=== PATIENT | male | born 1960 | race Caucasian/White ===

== ENCOUNTER 2016-09-01 13:05 | Inpatient (IN) | payer MEDICAID ==
[2016-09-01 13:14] VITALS: BMI 29.7
[2016-09-01] MEDS ORDERED: DUONEB 0.5 MG/3 MG ONE (13:33)
--- NOTE | 2016-09-01 13:33 | DR.GENAD ---
HPI - PCP Primary Care Physician: BRANDY - HPI Comment HPI Comment: INCREASING WEAKNESS AND SOB TIMES ONE DAY. FEEL BP MAY BE HIGH BUT IS LOW IN ED. COPD PATIENT BUT HOME MEDS NOT HELPING. - Complaint/Symptoms Chief Complaint Doctors Comments: SOB, WEAK, LOW BP Chief Complaint:: HARD TIME BREATHING, CONGESTED DRY COUGH, FEELS LIKE BP IS UP Self Treatment fo Chief Complaint: TOOKE REGULAR MEDS - Nurses notes reviewed Nurses Notes Review: Yes - Source History Provided: Patient - Mode of Arrival Mode of Arrival: Ambulatory - Timing Onset of Chief Complaint: 08/31/16 Came on: Suddenly - Duration Duration: Constant Duration: Days - Severity Severity: Moderate PMH - PMH Past Medical History: Yes Past Medical History: CHF, COPD, Hypertension, Schizophrenia Past Surgical History: Yes Surgical History: Ortho Surgery, Other - Family History History of Family Medical Conditions: Yes Family Medical History: Diabetes Mellitus, ID, Coronary Artery Disease, Hypertension - Social History Alcohol Use: None Do you use any recreational Drugs:: No Lives With: Family Lives Where: Home - infectious screening In the last 2 months have you had wt loss of >10#?: NO Have you had fever, night sweats or hemotysis?: No Have you traveled outside the country in the last 6 months?: No Isolation: Standard ROS - Review of Systems Constitutional: No Symptoms Reported, Weakness, Fatigue. negative: Chills, Fever Eyes: No Symptoms Reported. negative: Eye Pain, Discharge ENTM: Nose Congestion. negative: Ear Pain, Nose Discharge, Throat Pain Respiratoy: Non-Productive Cough, Short of Breath, Wheezing. negative: Hemoptysis Cardiovascular: Chest Pain, Palpitations Gastrointestinal/Abdominal: No Symptoms Reported. negative: Constipation, Diarrhea, Nausea, Vomiting Genitourinary: No Symptoms Reported Neurological: Weakness, Dizziness. negative: Headache Musculoskeletal: Muscle Pain Integumentary: No Symptoms Reported, Change in Color Hematologic/Lymphatic: negative: Easy Bruising Endocrine: No Symptoms Reported All Other Systems: Reviewed and Negative PE - Vital Signs Vitals: Temperature 98.5 F Pulse Rate [Right Brachial] 92 Pulse Rate [Right Dorsalis 83 Pedis] Pulse Rate 102 Respiratory Rate 17 Blood Pressure [Right Arm] 87/53 Blood Pressure [Left Arm] 81/48 Blood Pressure 70/49 O2 Sat by Pulse Oximetry 92 - General Limitations: No Limitations General Appearance: Alert - Head Head Exam: Normal Inspection - Eyes Eye exam: Normal Appearance - ENT ENT Exam: Normal External Ear Exam External Ear Exam: Normal External Inspection TM/Canal Exam: Bilateral Normal Nose Exam: Normal Nose Exam Mouth Exam: Normal Inspection Throat Exam: Normal Inspection - Neck Neck Exam: Trachea Midline. negative: Tenderness, Meningismus, Lymphadenopathy - Chest Chest Inspection: Symmetric Chest Wall Rise - Respiratory Respiratory Exam: Respiratory Distress Respiratory Exam: Bilateral Wheezing, Bilateral Rhonchi, Upper Wheezing, Upper Rhonchi, Lower Wheezing, Lower Rhonchi - Cardiovascular Cardiovascular Exam: Regular Rate, Normal Rhythm, Tachycardia - Abdominal Exam Abdominal Exam: Normal Bowel Sounds, Soft. negative: Tenderness - Extremities Extremities Exam: Normal Inspection - Back Back Exam: Normal Inspection - Neurologic Neurological Exam: Alert, Oriented X3 - Psychiatric Psychiatric Exam: Normal Affect, Normal Mood - Skin Skin Exam: Normal Color MDM - Differential Diagnosis Differential Diagnosis: CODP EXACERBATION, HYPOTENSION, DEHYDRATION, PNEUMONIA Course - Treatment Treatment: SEE ORDERS - Consultation Consultation Comments: DISCUSS PATIENT WITH DR. NAVA. HE WILL ADMIT PATIENT. - Education/Counseling Education/Counseling: Patient, Education Educated On: Treatment, Diagnosis ROR - Labs Reviewed Laboratory Results Reviewed?: Yes Result Diagrams: 09/01/16 13:26 09/01/16 13:26 Laboratory: WBC 11.4 X10^3/uL (3.6-10.0) H 09/01/16 13:26 RBC 3.97 X10^6/uL (4.7-6.0) L 09/01/16 13:26 Hgb 11.8 g/dL (13.5-18.0) L 09/01/16 13:26 Hct 35.8 % (42.0-54.0) L 09/01/16 13:26 MCV 90.2 fL (80.0-100.0) 09/01/16 13:26 MCH 29.7 pg (27.0-34.0) 09/01/16 13:26 MCHC 32.9 g/dL (33.0-35.0) L 09/01/16 13:26 RDW 13.4 % (11.6-16.5) 09/01/16 13:26 Plt Count 369 X10^3/uL (150.0-450.0) 09/01/16 13:26 MPV 7.5 fL (7.4-11.0) 09/01/16 13: Neut % 84.3 % (42.0-75.0) H 09/01/16 13: Lymph % 5.4 % (21.0-51.0) L 09/01/16 13:26 Briscoe % 9.5 % (0.0-13.0) 09/01/16 13: Eos % 0.4 % (0.9-2.9) L 09/01/16 13: Baso % 0.4 % (0.2-1.0) 09/01/16 13: Neut # 9.7 x10^3/uL (2.2-4.8) H 09/01/16 13: Lymph # 0.6 X10^3/uL (1.3-2.9) L 09/01/16 13: Briscoe # 1.1 x10^3/uL (0.3-0.8) H 09/01/16 13: Eos # 0.0 x10^3/uL (0.0-0.2) 09/01/16 13: Baso # 0.0 X10^3/uL (0.0-0.1) 09/01/16 13:26 Absolute Nucleated RBC 0.0 /100WBC 09/01/16 13:26 Sodium 137 mmol/L (136-145) 09/01/16 13:26 Corrected Sodium TNP 09/01/16 13:26 Potassium 5.3 mmol/L (3.5-5.1) H 09/01/16 13:26 Chloride 99 mmol/L (98-107) 09/01/16 13:26 Carbon Dioxide 25.8 mmol/L (21-32) 09/01/16 13:26 BUN 117 mg/dL (7-18) H 09/01/16 13:26 Creatinine 4.31 mg/dL (0.70-1.30) H 09/01/16 13:26 Est GFR (MDRD) Af Amer 19 (>60) L 09/01/16 13:26 Est GFR (MDRD) Non-Af 15 (>60) L 09/01/16 13:26 Glucose 96 mg/dL (65-99) 09/01/16 13:26 Calcium 8.4 mg/dL (8.5-10.1) L 09/01/16 13:26 Corrected Calcium TNP 09/01/16 13:26 Total Bilirubin 0.50 mg/dL (0.2-1.0) 09/01/16 13:26 AST 320 Units/L (15-37) H 09/01/16 13:26 ALT 144 Units/L (12-78) H 09/01/16 13:26 Alkaline Phosphatase 69 Units/L (46-116) 09/01/16 13:26 Creatine Kinase 2573 Units/L (39-308) H 09/01/16 13:26 CK-MB (CK-2) 112.9 ng/mL (0-4.0) H* 09/01/16 13:26 CK/CKMB % Calc 10.0 % (<4) 09/01/16 13:26 Troponin I < 0.02 ng/mL (0-1.5) 09/01/16 13:26 B-Natriuretic Peptide 160 pg/mL (0-79) H 09/01/16 13:26 Total Protein 7.8 g/dL (6.4-8.2) 09/01/16 13:26 Albumin 3.7 g/dL (3.4-5.0) 09/01/16 13:26 Globulin 4.1 g/dL (2.5-4.5) 09/01/16 13:26 Albumin/Globulin Ratio 0.9 Ratio (1.1-2.1) L 09/01/16 13:26 - XRAY XRAY Interpreted by: Radiologist XRAY Findings: REPORT DISCUSS WITH PATIENT. - EKG Rhythm: NSR (EKG NOTED) - Diagnosis Discharge Problem: COPD exacerbation, Renal insufficiency, Dehydration Hypotension Qualifiers: Hypotension type: unspecified hypotension type Qualified Code(s): I95.9 - Hypotension, unspecified - Discharge Plan Disposition: ADMITTED INPATIENT Condition: Stable - Follow ups/Referrals - Instructions
[2016-09-01] MEDS ORDERED: DUONEB 0.5 MG/3 MG NEB ONE (13:37)
[2016-09-01 13:41] LABS: BASOPHILS % (AUTO) 0.4 % (0.2-1.0); EOSINOPHILS % (AUTO) 0.4 % (0.9-2.9); HEMATOCRIT 35.8 % (42.0-54.0); HEMOGLOBIN 11.8 g/dL (13.5-18.0); LYMPHOCYTES # (AUTO) 0.6 X10^3/uL (1.3-2.9); LYMPHOCYTES % (AUTO) 5.4 % (21.0-51.0); MEAN CORPUSCULAR HEMOGLOBIN 29.7 pg (27.0-34.0); MEAN CORPUSCULAR HGB CONC 32.9 g/dL (33.0-35.0); MEAN CORPUSCULAR VOLUME 90.2 fL (80.0-100.0); MEAN PLATELET VOLUME 7.5 fL (7.4-11.0); MONOCYTES # (AUTO) 1.1 x10^3/uL (0.3-0.8); MONOCYTES % (AUTO) 9.5 % (0.0-13.0); NEUTROPHILS # (AUTO) 9.7 x10^3/uL (2.2-4.8); NEUTROPHILS % (AUTO) 84.3 % (42.0-75.0); PLATELET COUNT 369 X10^3/uL (150.0-450.0); RED BLOOD COUNT 3.97 X10^6/uL (4.7-6.0); RED CELL DISTRIBUTION WIDTH 13.4 % (11.6-16.5); WHITE BLOOD COUNT 11.4 X10^3/uL (3.6-10.0)
--- NOTE | 2016-09-01 13:52 | RAD ---
Examination: Chest x-ray. Clinical history: Chest pain. Shortness of breath. Technique: A single portable AP view of the chest was obtained. Comparison: 06/27/2016. Findings: The cardiac and mediastinal contours are within normal limits. The thoracic aorta is calcified. No pneumothorax or pleural effusion is noted. The lungs are clear. No acute osseous abnormality is noted. Impression: 1. No acute disease. Reported By:
[2016-09-01 13:57] LABS: BLOOD UREA NITROGEN 117 mg/dL (7-18); CALCIUM 8.4 mg/dL (8.5-10.1); CARBON DIOXIDE 25.8 mmol/L (21-32); CHLORIDE 99 mmol/L (98-107); CREATININE 4.31 mg/dL (0.70-1.30); GLUCOSE 96 mg/dL (65-99); SODIUM 137 mmol/L (136-145); TROPONIN I < 0.02 ng/mL (0-1.5); eGFR BLACK RACES 19 (>60); eGFR NON BLACK RACES 15 (>60)
[2016-09-01 14:00] LABS: B-TYPE NATRIURETIC PEPTIDE 160 pg/mL (0-79)
[2016-09-01 14:17] LABS: ALANINE AMINOTRANSFERASE 144 Units/L (12-78); ALBUMIN 3.7 g/dL (3.4-5.0); ALKALINE PHOSPHATASE 69 Units/L (46-116); ASPARTATE AMINO TRANSFERASE 320 Units/L (15-37); TOTAL PROTEIN 7.8 g/dL (6.4-8.2)
[2016-09-01 14:19] LABS: CREATINE KINASE MB 112.9 ng/mL (0-4.0)
[2016-09-01 14:38] LABS: CREATINE KINASE 2573 Units/L (39-308)
[2016-09-01] MEDS ORDERED: NS 1000 ML 1,000 ML IV ONE ×2 (14:49)
[2016-09-01] MEDS ORDERED: NS 1000 ML 1,000 ML ONE (14:49)
[2016-09-01] MEDS: DUONEB 0.5 MG/3 MG NEB SCH ×2 (16:40→20:30)
[2016-09-01] MEDS: NS 1000 ML 1,000 ML IV SCH ×2 (16:45→21:26)
[2016-09-01] MEDS: ROCEPHIN VIAL 1 GM 1 GM in NS 50 ML IV + SPIKE MINIBAG* 50 ML IV SCH (17:38)
[2016-09-01 20:51] LABS: TROPONIN I < 0.02 ng/mL (0-1.5)
[2016-09-01 21:26] LABS: CREATINE KINASE MB 75.1 ng/mL (0-4.0)
[2016-09-01 21:51] LABS: CKMB % 0.9 % (<4); CREATINE KINASE 8722 Units/L (39-308)
[2016-09-01 23:31] LABS: BILIRUBIN,URINE NEGATIVE (NEGATIVE); BLOOD/HEMOGLOBIN,URINE 3+ (NEGATIVE); GLUCOSE, URINE NEGATIVE (NEGATIVE); KETONES,URINE NEGATIVE (NEGATIVE); LEUKOCYTE ESTERASE ,URINE NEGATIVE (NEGATIVE); NITRITES,URINE NEGATIVE (NEGATIVE); PROTEIN,URINE 2+ (NEGATIVE); UROBILINOGEN,URINE NORMAL (NORMAL)
[2016-09-01 23:37] LABS: APPEARANCE,URINE CLEAR (CLEAR); COLOR,URINE YELLOW (YELLOW)
[2016-09-01 23:38] LABS: BACTERIA,URINE NEGATIVE /HPF (NEGATIVE); RBC,URINE 0-2 /HPF (NEGATIVE); SQUAMOUS EPITHELIAL CELL,UR RARE /HPF (NEGATIVE)
[2016-09-01] MEDS: RESTORIL CAP 15 MG PO PRN (23:39)
[2016-09-02] MEDS: DUONEB 0.5 MG/3 MG NEB SCH ×6 (00:37→21:28)
[2016-09-02] MEDS: NS 1000 ML 1,000 ML IV SCH ×4 (02:09→20:45)
[2016-09-02 02:30] LABS: TROPONIN I < 0.02 ng/mL (0-1.5)
[2016-09-02 02:33] LABS: CREATINE KINASE MB 51.8 ng/mL (0-4.0)
[2016-09-02 02:34] LABS: CKMB % 0.8 % (<4); CREATINE KINASE 6799 Units/L (39-308)
[2016-09-02 06:16] LABS: BASOPHILS % (AUTO) 0.4 % (0.2-1.0); EOSINOPHILS # (AUTO) 0.1 x10^3/uL (0.0-0.2); EOSINOPHILS % (AUTO) 1.7 % (0.9-2.9); HEMATOCRIT 30.2 % (42.0-54.0); HEMOGLOBIN 10.2 g/dL (13.5-18.0); LYMPHOCYTES # (AUTO) 0.9 X10^3/uL (1.3-2.9); LYMPHOCYTES % (AUTO) 13.3 % (21.0-51.0); MEAN CORPUSCULAR HEMOGLOBIN 30.8 pg (27.0-34.0); MEAN CORPUSCULAR HGB CONC 33.7 g/dL (33.0-35.0); MEAN CORPUSCULAR VOLUME 91.5 fL (80.0-100.0); MEAN PLATELET VOLUME 7.4 fL (7.4-11.0); MONOCYTES % (AUTO) 13.8 % (0.0-13.0); NEUTROPHILS % (AUTO) 70.8 % (42.0-75.0); PLATELET COUNT 302 X10^3/uL (150.0-450.0); RED BLOOD COUNT 3.31 X10^6/uL (4.7-6.0); RED CELL DISTRIBUTION WIDTH 13.6 % (11.6-16.5); WHITE BLOOD COUNT 7.1 X10^3/uL (3.6-10.0)
[2016-09-02 06:21] LABS: ALANINE AMINOTRANSFERASE 119 Units/L (12-78); ALBUMIN 2.9 g/dL (3.4-5.0); ALKALINE PHOSPHATASE 54 Units/L (46-116); ASPARTATE AMINO TRANSFERASE 216 Units/L (15-37); BLOOD UREA NITROGEN 95 mg/dL (7-18); CALCIUM 7.7 mg/dL (8.5-10.1); CARBON DIOXIDE 24.8 mmol/L (21-32); CHLORIDE 109 mmol/L (98-107); COR CA(FOR HYPOALB) 8.6 mg/dL (8.5-10.1); CREATININE 2.23 mg/dL (0.70-1.30); GLUCOSE 93 mg/dL (65-99); SODIUM 142 mmol/L (136-145); TOTAL PROTEIN 6.4 g/dL (6.4-8.2); eGFR BLACK RACES 40 (>60); eGFR NON BLACK RACES 33 (>60)
[2016-09-02] MEDS: ROCEPHIN VIAL 1 GM 1 GM in NS 50 ML IV + SPIKE MINIBAG* 50 ML IV SCH (09:00)
--- NOTE | 2016-09-02 17:04 | US ---
HISTORY: Elevated LFTs Study: Ultrasound of the liver Comparison: None Technique: Multiple clark scale and color flow Doppler images of the right upper quadrant were obtain ed. Findings: The liver is normal in echotexture and size. No focal intraparenchymal mass or intrahepatic biliary ductal dilatation can be observed. Multiple echogenic shadowing gallstones are seen. The common b ile duct measures 8 mm, slightly enlarged. No pericholecystic fluid or gallbladder wall thickening is observed. There was a positive Robison's sign reported. The right kidney appears normal in size without focal parenchymal mass or nephrolithiasis. The righ t kidney measurers 10.4 x 6.2 x 5.7 cm. No hydronephrosis or perirenal fluid can be observed. The pancreas was not visualized. IMPRESSION: 1. Cholelithiasis with reported positive sonographic Robison sign. The findings can be seen with acu te cholecystitis. Consider correlation with nuclear medicine hepatobiliary scan if indicated. Reported By:
[2016-09-02] MEDS ORDERED: NORCO 5/325 MG TAB PO PRN (19:45)
[2016-09-02] MEDS: RESTORIL CAP 15 MG PO PRN (20:45)
[2016-09-02] MEDS: ULTRAM PO PRN (22:38)
[2016-09-03] MEDS: DUONEB 0.5 MG/3 MG NEB SCH ×4 (01:03→12:16)
[2016-09-03] MEDS: NS 1000 ML 1,000 ML IV SCH (04:13)
[2016-09-03] MEDS: ULTRAM PO PRN (05:45)
[2016-09-03 06:15] LABS: BASOPHILS % (AUTO) 0.7 % (0.2-1.0); EOSINOPHILS # (AUTO) 0.1 x10^3/uL (0.0-0.2); EOSINOPHILS % (AUTO) 2.7 % (0.9-2.9); HEMATOCRIT 30.4 % (42.0-54.0); HEMOGLOBIN 10.1 g/dL (13.5-18.0); LYMPHOCYTES # (AUTO) 1.2 X10^3/uL (1.3-2.9); LYMPHOCYTES % (AUTO) 21.5 % (21.0-51.0); MEAN CORPUSCULAR HEMOGLOBIN 30.5 pg (27.0-34.0); MEAN CORPUSCULAR HGB CONC 33.2 g/dL (33.0-35.0); MEAN CORPUSCULAR VOLUME 91.6 fL (80.0-100.0); MEAN PLATELET VOLUME 7.4 fL (7.4-11.0); MONOCYTES # (AUTO) 0.7 x10^3/uL (0.3-0.8); MONOCYTES % (AUTO) 12.8 % (0.0-13.0); NEUTROPHILS # (AUTO) 3.4 x10^3/uL (2.2-4.8); NEUTROPHILS % (AUTO) 62.3 % (42.0-75.0); PLATELET COUNT 322 X10^3/uL (150.0-450.0); RED BLOOD COUNT 3.32 X10^6/uL (4.7-6.0); RED CELL DISTRIBUTION WIDTH 13.7 % (11.6-16.5); WHITE BLOOD COUNT 5.5 X10^3/uL (3.6-10.0)
[2016-09-03 07:12] LABS: ALANINE AMINOTRANSFERASE 107 Units/L (12-78); ALBUMIN 2.8 g/dL (3.4-5.0); ALKALINE PHOSPHATASE 51 Units/L (46-116); ASPARTATE AMINO TRANSFERASE 132 Units/L (15-37); BLOOD UREA NITROGEN 40 mg/dL (7-18); CALCIUM 7.7 mg/dL (8.5-10.1); CARBON DIOXIDE 25.9 mmol/L (21-32); COR CA(FOR HYPOALB) 8.7 mg/dL (8.5-10.1); CREATININE 1.09 mg/dL (0.70-1.30); GLUCOSE 89 mg/dL (65-99); SODIUM 148 mmol/L (136-145); TOTAL PROTEIN 5.5 g/dL (6.4-8.2); eGFR BLACK RACES > 60 (>60); eGFR NON BLACK RACES > 60 (>60)
[2016-09-03 07:16] LABS: CHLORIDE 116 mmol/L (98-107)
--- NOTE | 2016-09-03 08:34 | RAD ---
HISTORY: COPD with exacerbation Study: Two view chest Comparison: 09/01/2016 Findings: Lungs appear hyperinflated and hyperlucent suggesting underlying emphysematous changes with chronic coarsened interstitial markings. The lungs are clear without consolidation, effusion or pneumothorax . The cardiac and mediastinal contours are within normal limits. The soft tissues are unremarkable. IMPRESSION: 1. Chronic emphysematous changes without acute abnormality. Reported By:
[2016-09-03 09:33] VITALS: BP 126/70
[2016-09-03] MEDS: ROCEPHIN VIAL 1 GM 1 GM in NS 50 ML IV + SPIKE MINIBAG* 50 ML IV SCH (09:33)
== END 2016-09-03 12:30 | disposition home or self-care (01) | DRG 315 ==
LOC: ER 13:05 → OBS 15:35 → MED/SURG 09-02 18:50
PROVIDERS: ADMIT Obstetrics & Gynecology Obstetrics; ATTEND Obstetrics & Gynecology Obstetrics
DX: I95.89 Other hypotension (principal); J44.1 Chronic obstructive pulmonary disease with (acute) exacerbation; N28.89 Other specified disorders of kidney and ureter; E86.0 Dehydration; R06.02 Shortness of breath; R53.1 Weakness; I10 Essential (primary) hypertension; R74.8 Abnormal levels of other serum enzymes; M62.82 Rhabdomyolysis
CPT/HCPCS: 36415; 71010; 71020; 76705; 80053; 80307; 81001; 82550; 82553; 83880; 84484; 85025; 93005; 93010; 94640; 94760; 96365; 99284; A4222; G0434; G6039; J0696; J7620

== ENCOUNTER 2016-11-02 12:07 | Emergency (ER) | payer MEDICAID ==
[2016-11-02] MEDS ORDERED: ZOFRAN INJ 4 MG VIAL ONE (12:14)
[2016-11-02] MEDS ORDERED: NS 1000 ML 1,000 ML ONE ×3 (12:14→17:39)
[2016-11-02] MEDS ORDERED: ZOFRAN INJ 4 MG VIAL IVP ONE (12:18)
[2016-11-02] MEDS ORDERED: DEMEROL INJ IVP ONE (12:18)
--- NOTE | 2016-11-02 12:18 | DR.GENAD ---
HPI - Complaint/Symptoms Chief Complaint Doctors Comments: complaint of abdominal pain, no BM x 3-4 days , on lorcet - Nurses notes reviewed Nurses Notes Review: Yes - Source History Provided: Patient - Mode of Arrival Mode of Arrival: EMS - Timing Came on: Gradually - Duration Duration: Constant How lon Duration: Days - Location Location: abdomin - Severity Severity: Moderate - Modifying Factors Worsens:: narcotics - Associated Signs and Symptoms Associated Signs and Symptoms: nausea PMH - PMH Past Medical History: CHF, COPD, Hypertension, Schizophrenia Past Surgical History: No Surgical History: Ortho Surgery, Other - Family History Family Medical History: Hypertension - Social History Do you use any recreational Drugs:: No ROS - Review of Systems Constitutional: No Symptoms Reported Eyes: No Symptoms Reported ENTM: No Symptoms Reported Respiratoy: No Symptoms Reported Cardiovascular: No Symptoms Reported Gastrointestinal/Abdominal: Abdominal Pain, Nausea Genitourinary: No Symptoms Reported Neurological: No Symptoms Reported Musculoskeletal: No Symptoms Reported Integumentary: No Symptoms Reported Hematologic/Lymphatic: No Symptoms Reported Endocrine: No Symptoms Reported Psychiatric: Other (schizophrenic) PE - Vital Signs Vitals: Temperature 98.7 F Pulse Rate [Apical] 107 Pulse Rate [Left Radial] 75 Pulse Rate 98 Respiratory Rate 18 Blood Pressure [Right Arm] 97/58 Blood Pressure [Left Arm] 81/35 Blood Pressure 193/71 O2 Sat by Pulse Oximetry 100 Course - Treatment Treatment: 1610: patient oxygen sats 70-80 on oxygen, respiratory failure present, called nurse research development director and was intubated, pulse weak given bicarb and epi x 1. [facility] called. They were on diversion and called [facility] and accepted by ASIF Chaudhry for DR. Ramirez. Bp dropped again so dopamine started and maxed to 20 mcg. It was replaced with lephofed at 12mcg and Bp improved to 80s systolic. - Consultation Called: 13:25 Call Returned: 13:25 Consultation Comments: case discussed with DR. Nava admit for acute bronchitis and order ultrasound of liver. ROR - Labs Reviewed Result Diagrams: 11/02/16 12:27 11/02/16 17:50 Laboratory: WBC 13.4 X10^3/uL (3.6-10.0) H 11/02/16 12:27 RBC 3.91 X10^6/uL (4.7-6.0) L 11/02/16 12:27 Hgb 11.6 g/dL (13.5-18.0) L 11/02/16 12: Hct 35.1 % (42.0-54.0) L 11/02/16 12: MCV 89.9 fL (80.0-100.0) 11/02/16 12: MCH 29.7 pg (27.0-34.0) 11/02/16 12: MCHC 33.1 g/dL (33.0-35.0) 11/02/16 12: RDW 14.0 % (11.6-16.5) 11/02/16 12: Plt Count 298 X10^3/uL (150.0-450.0) 11/02/16 12: Plt Count Comment Adequate (ADEQUATE) 11/02/16 12: MPV 7.4 fL (7.4-11.0) 11/02/16 12: Neut % 91.3 % (42.0-75.0) H 11/02/16 12: Lymph % 2.7 % (21.0-51.0) L 11/02/16 12: Knott % 5.2 % (0.0-13.0) 11/02/16 12: Eos % 0.0 % (0.9-2.9) L 11/02/16 12: Baso % 0.8 % (0.2-1.0) 11/02/16 12: Neut # 12.3 x10^3/uL (2.2-4.8) H 11/02/16 12: Lymph # 0.4 X10^3/uL (1.3-2.9) L 11/02/16 12: Knott # 0.7 x10^3/uL (0.3-0.8) 11/02/16 12: Eos # 0.0 x10^3/uL (0.0-0.2) 11/02/16 12: Baso # 0.1 X10^3/uL (0.0-0.1) 11/02/16 12: Absolute Nucleated RBC 0.0 /100WBC 11/02/16 12: Total Counted 100 11/02/16 12:27 Neutrophils % (Manual) 68 % (39-76) 11/02/16 12:27 Band Neutrophils % 20 % (0-10) H 11/02/16 12:27 Lymphocytes % (Manual) 8 % (13-43) L 11/02/16 12:27 Monocytes % (Manual) 4 % (4-9) 11/02/16 12:27 Plt Morphology Comment Normal (NORMAL) 11/02/16 12:27 RBC Morphology Normal (NORMAL) 11/02/16 12:27 Sample Site Left femoral 11/02/16 17:55 ABG pH 7.110 (7.35-7.45) L* 11/02/16 17:55 ABG pCO2 67.0 mmHg (35.0-45.0) H* 11/02/16 17:55 ABG pO2 201.0 mmHg (80.0-100.0) H 11/02/16 17:55 ABG HCO3 21.3 mmol/L (22-26) L 11/02/16 17:55 ABG O2 Saturation 99.0 % (90-100) 11/02/16 17:55 ABG Base Excess -9.0 mmol/L (-2.0-2.0) L 11/02/16 17:55 Nitesh Test Na 11/02/16 17:55 A-a Gradient 72.0 mmHg 11/02/16 17:55 FiO2 50.000 11/02/16 17:55 Blood Gas Comments Marcellus well aw 11/02/16 17:55 Sodium 140 mmol/L (136-145) 11/02/16 13:45 Corrected Sodium TNP 11/02/16 13:45 Potassium 8.1 mmol/L (3.5-5.1) H* 11/02/16 17:50 Chloride 97 mmol/L (98-107) L 11/02/16 13:45 Carbon Dioxide 22.7 mmol/L (21-32) 11/02/16 13:45 BUN 103 mg/dL (7-18) H 11/02/16 13:45 Creatinine 10.13 mg/dL (0.70-1.30) H 11/02/16 13:45 Est GFR (MDRD) Af Amer 7 (>60) L 11/02/16 13:45 Est GFR (MDRD) Non-Af 6 (>60) L 11/02/16 13:45 Glucose 91 mg/dL (65-99) 11/02/16 13:45 Calcium 8.0 mg/dL (8.5-10.1) L 11/02/16 13:45 Corrected Calcium 8.6 mg/dL (8.5-10.1) 11/02/16 13:45 Total Bilirubin 2.90 mg/dL (0.2-1.0) H 11/02/16 13:45 AST 241 Units/L (15-37) H 11/02/16 13:45 ALT 92 Units/L (12-78) H 11/02/16 13:45 Alkaline Phosphatase 53 Units/L (46-116) 11/02/16 13:45 Ammonia 38 umol/L (11-32) H 11/02/16 13:15 Creatine Kinase 9360 Units/L (39-308) H 11/02/16 12:27 Troponin I 0.02 ng/mL (0-1.5) 11/02/16 12:27 Total Protein 6.4 g/dL (6.4-8.2) 11/02/16 13:45 Albumin 3.2 g/dL (3.4-5.0) L 11/02/16 13:45 Globulin 3.2 g/dL (2.5-4.5) 11/02/16 13:45 Albumin/Globulin Ratio 1.0 Ratio (1.1-2.1) L 11/02/16 13:45 Amylase 152 Units/L (25-115) H 11/02/16 12:27 Lipase 126 Units/L (73-393) 11/02/16 12:27 Specimen Type Catherized urine 11/02/16 14:16 Urine Color Dark yellow (YELLOW) 11/02/16 14:16 Urine Appearance Slightly hazy (CLEAR) 11/02/16 14:16 Urine pH 5.0 (5.0 - 8.0) 11/02/16 14:16 Ur Specific [place] 1.015 (1.000-1.030) 11/02/16 14:16 Urine Protein 2+ (NEGATIVE) 11/02/16 14:16 Urine Glucose (UA) Negative (NEGATIVE) 11/02/16 14:16 Urine Ketones Negative (NEGATIVE) 11/02/16 14:16 Urine Occult Blood 3+ (NEGATIVE) 11/02/16 14:16 Urine Nitrite Negative (NEGATIVE) 11/02/16 14:16 Urine Bilirubin 1+ (NEGATIVE) 11/02/16 14:16 Urine Urobilinogen Normal (NORMAL) 11/02/16 14:16 Ur Leukocyte Esterase 1+ (NEGATIVE) 11/02/16 14:16 Urine RBC 3-6 /HPF (NEGATIVE) 11/02/16 14:16 Urine WBC 2-5 /HPF (NEGATIVE) 11/02/16 14:16 Ur Squamous Epith Cells Rare /HPF (NEGATIVE) 11/02/16 14:16 Amorphous Sediment Trace /HPF (NEGATIVE) 11/02/16 14:16 Urine Bacteria 1+ /HPF (NEGATIVE) 11/02/16 14:16 Hyaline Casts Few /LPF (NEGATIVE) 11/02/16 14:16 Urine Mucus Few /HPF (NEGATIVE) 11/02/16 14:16 Ur Culture Indicated? No/not indicated 11/02/16 14:16 - XRAY XRAY Interpreted by: Radiologist XRAY Findings: AAS: no acute diseaes, moderate stool - Diagnosis Discharge Problem: Renal failure - Discharge Plan Condition: Stable Prescriptions: Lorazepam [Ativan] 1 mg IV ONCE #1 tab - Follow ups/Referrals Follow ups/Referrals: ANNA NAVA [Primary Care Provider] - 3 days - Instructions Instructions: Acute Bronchitis, [id number], Chronic Kidney Disease
[2016-11-02 12:26] VITALS: BMI 27.4
[2016-11-02] MEDS ORDERED: NS 1000 ML 1,000 ML IV ONE (12:27)
[2016-11-02] MEDS ORDERED: DEMEROL INJ ONE (12:28)
[2016-11-02 12:38] LABS: BASOPHILS # (AUTO) 0.1 X10^3/uL (0.0-0.1); BASOPHILS % (AUTO) 0.8 % (0.2-1.0); HEMATOCRIT 35.1 % (42.0-54.0); HEMOGLOBIN 11.6 g/dL (13.5-18.0); LYMPHOCYTES # (AUTO) 0.4 X10^3/uL (1.3-2.9); LYMPHOCYTES % (AUTO) 2.7 % (21.0-51.0); MEAN CORPUSCULAR HEMOGLOBIN 29.7 pg (27.0-34.0); MEAN CORPUSCULAR HGB CONC 33.1 g/dL (33.0-35.0); MEAN CORPUSCULAR VOLUME 89.9 fL (80.0-100.0); MEAN PLATELET VOLUME 7.4 fL (7.4-11.0); MONOCYTES # (AUTO) 0.7 x10^3/uL (0.3-0.8); MONOCYTES % (AUTO) 5.2 % (0.0-13.0); NEUTROPHILS # (AUTO) 12.3 x10^3/uL (2.2-4.8); NEUTROPHILS % (AUTO) 91.3 % (42.0-75.0); PLATELET COUNT 298 X10^3/uL (150.0-450.0); RED BLOOD COUNT 3.91 X10^6/uL (4.7-6.0); WHITE BLOOD COUNT 13.4 X10^3/uL (3.6-10.0)
[2016-11-02 12:45] LABS: BLOOD UREA NITROGEN 103 mg/dL (7-18); CALCIUM 8.5 mg/dL (8.5-10.1); CARBON DIOXIDE 21.3 mmol/L (21-32); CHLORIDE 94 mmol/L (98-107); CREATININE 10.48 mg/dL (0.70-1.30); GLUCOSE 90 mg/dL (65-99); SODIUM 138 mmol/L (136-145); eGFR BLACK RACES 7 (>60); eGFR NON BLACK RACES 5 (>60)
[2016-11-02 12:50] LABS: ALANINE AMINOTRANSFERASE 97 Units/L (12-78); ALBUMIN 3.6 g/dL (3.4-5.0); ALKALINE PHOSPHATASE 64 Units/L (46-116); AMYLASE 152 Units/L (25-115); ASPARTATE AMINO TRANSFERASE 253 Units/L (15-37); LIPASE 126 Units/L (73-393); TOTAL PROTEIN 7.2 g/dL (6.4-8.2)
--- NOTE | 2016-11-02 12:51 | RAD ---
HISTORY: Abdominal pain, constipation Study: Acute abdominal series Comparison: None Findings: The trachea is midline. The cardiac silhouette is unremarkable. The lungs are clear without focal infiltrate or effusion. The bony thorax is unremarkable. Flat plate and upright evaluation of the abdomen demonstrates a normal bowel gas pattern. No pneumop eritoneum is identified. Only moderate stool is present.. No pathological soft tissue mass or calci fication can be observed. The bony structures are grossly intact. IMPRESSION: 1. No acute cardiopulmonary disease. 2. No evidence for acute abdominal pathology identified. Reported By:
[2016-11-02] MEDS ORDERED: SODIUM BICARBONATE 8.4% INJ ADULT 100 ML in NS 1/2 1000 ML IV 1,000 ML IV ONE (12:55)
[2016-11-02] MEDS ORDERED: KAYEXALATE PO SCH ×2 (13:00→14:00)
[2016-11-02 13:07] LABS: BAND NEUTROPHILS % 20 % (0-10); PLATELET MORPHOLOGY COMMENT NORMAL (NORMAL)
[2016-11-02] MEDS ORDERED: ZOFRAN INJ 4 MG VIAL IVP PRN (13:32)
[2016-11-02 13:56] LABS: BLOOD UREA NITROGEN 103 mg/dL (7-18); CARBON DIOXIDE 22.7 mmol/L (21-32); CHLORIDE 97 mmol/L (98-107); CREATININE 10.13 mg/dL (0.70-1.30); GLUCOSE 91 mg/dL (65-99); SODIUM 140 mmol/L (136-145); eGFR BLACK RACES 7 (>60); eGFR NON BLACK RACES 6 (>60)
[2016-11-02 14:00] LABS: ALANINE AMINOTRANSFERASE 92 Units/L (12-78); ALBUMIN 3.2 g/dL (3.4-5.0); ALKALINE PHOSPHATASE 53 Units/L (46-116); ASPARTATE AMINO TRANSFERASE 241 Units/L (15-37); COR CA(FOR HYPOALB) 8.6 mg/dL (8.5-10.1); TOTAL PROTEIN 6.4 g/dL (6.4-8.2)
[2016-11-02] MEDS ORDERED: NS 1000 ML 1,000 ML IV SCH (14:00)
[2016-11-02] MEDS ORDERED: NS 1/2 1000 ML IV 1,000 ML IV ONE (14:08)
[2016-11-02] MEDS ORDERED: SODIUM BICARBONATE 8.4% INJ ADULT ONE (14:09)
[2016-11-02 14:10] LABS: TROPONIN I 0.02 ng/mL (0-1.5)
[2016-11-02] MEDS ORDERED: ROCEPHIN VIAL 1 GM ONE (14:20)
[2016-11-02 14:42] LABS: BILIRUBIN,URINE 1+ (NEGATIVE); BLOOD/HEMOGLOBIN,URINE 3+ (NEGATIVE); GLUCOSE, URINE NEGATIVE (NEGATIVE); KETONES,URINE NEGATIVE (NEGATIVE); LEUKOCYTE ESTERASE ,URINE 1+ (NEGATIVE); NITRITES,URINE NEGATIVE (NEGATIVE); PROTEIN,URINE 2+ (NEGATIVE); UROBILINOGEN,URINE NORMAL (NORMAL)
[2016-11-02 14:56] LABS: AMORPHOUS SEDIMENT,UR TRACE /HPF (NEGATIVE); APPEARANCE,URINE SLIGHTLY HAZY (CLEAR); BACTERIA,URINE 1+ /HPF (NEGATIVE); COLOR,URINE DARK YELLOW (YELLOW); HYALINE CASTS, URINE FEW /LPF (NEGATIVE); MUCUS,URINE FEW /HPF (NEGATIVE); SQUAMOUS EPITHELIAL CELL,UR RARE /HPF (NEGATIVE)
[2016-11-02] MEDS ORDERED: ROCEPHIN VIAL 1 GM 1 GM in NS 50 ML IV + SPIKE MINIBAG* 50 ML IV SCH (15:00)
[2016-11-02 15:09] LABS: ABG BASE EXCESS -8.8 mmol/L (-2.0-2.0); ABG HCO3 19.8 mmol/L (22-26)
[2016-11-02] MEDS ORDERED: ATIVAN INJ 2 MG VIAL IVP ONE (15:13)
[2016-11-02] MEDS ORDERED: ATIVAN INJ 2 MG VIAL ONE (15:14)
[2016-11-02] MEDS ORDERED: HALDOL INJ IM ONE (15:58)
[2016-11-02] MEDS ORDERED: HALDOL INJ ONE (15:58)
[2016-11-02] MEDS ORDERED: DIPRIVAN VIAL 20 ML ONE (16:20)
[2016-11-02] MEDS ORDERED: QUELICIN (OR ANECTINE) ONE (16:20)
[2016-11-02] MEDS ORDERED: ZEMURON ONE (16:24)
[2016-11-02] MEDS ORDERED: DIPRIVAN PREMIX 1 GM IV 1,000 MG/100 ML VIAL ONE (16:44)
[2016-11-02 16:45] LABS: ABG BASE EXCESS -6.2 mmol/L (-2.0-2.0); ABG HCO3 24.4 mmol/L (22-26)
[2016-11-02] MEDS ORDERED: DUONEB 0.5 MG/3 MG ONE (17:06)
[2016-11-02] MEDS ORDERED: DUONEB 0.5 MG/3 MG NEB ONE (17:10)
--- NOTE | 2016-11-02 17:54 | RAD ---
AP Chest Indication: Endotracheal tube placement Comparison: 11/02/2016 at 12:45 p.m. Findings: Endotracheal tube has been placed with its tip approximately 3 cm above the justin in satisfactory p osition. Nasogastric tube has been placed its tip within the gastric body. The trachea is midline. The cardiac silhouette is unremarkable. The lungs are clear without focal infiltrate or effusion. The bony thorax is unremarkable. IMPRESSION: 1. Satisfactory position of nasogastric and endotracheal tubes without pneumothorax. No significant change from prior examination. Reported By:
--- NOTE | 2016-11-02 18:01 | RAD ---
AP chest Indication: Nasogastric tube placement Comparison: None available. Findings: Lung bases are clear. Nasogastric tube terminates within the gastric body. Mild gaseous di stention of the small bowel colon is nonspecific however it nonobstructive in its appearance. No pallavi e air pneumatosis. No abdominal calcification identified. No acute osseous abnormality. Impression: Nasogastric tube within the gastric body. No acute radiographic abnormality identified w ithin the abdomen or pelvis. Reported By:
[2016-11-02] MEDS ORDERED: LEVOPHED INJ 8 MG in D5W 250 ML IV 242 ML IV PRN (18:02)
[2016-11-02 18:03] LABS: ABG HCO3 21.3 mmol/L (22-26)
[2016-11-02] MEDS ORDERED: SODIUM BICARBONATE 8.4% INJ ADULT IVP ONE (18:08)
[2016-11-02 19:08] VITALS: BP 88/53
[2016-11-02] MEDS ORDERED: DUONEB 0.5 MG/3 MG NEB SCH (21:00)
[2016-11-03] MEDS ORDERED: ZESTRIL TAB 20 MG PO SCH (09:00)
== END 2016-11-02 19:19 | disposition short-term general hospital (02) ==
LOC: ER 12:07 → ICU 15:20 → UNDOADMIN 15:20 → ER 19:19
PROC: 0D9670Z Drainage of Stomach with Drainage Device, Via Natural or Artificial Opening (ICD-10-PCS; principal; 2016-11-02)
DX: N17.8 Other acute kidney failure (principal); R10.84 Generalized abdominal pain
CPT/HCPCS: 36415; 36600; 43753; 51702; 71010; 74000; 74022; 80053; 81001; 82140; 82150; 82550; 82803; 83690; 84132; 84484; 85025; 93005; 93010; 93041; 94640; 96365; 96367; 96372; 96374; 96375; 99284; 99291; A4216; A4222; A4618; J0330; J0696; J1630; J2060; J2175; J2405; J3490; J7620